=== PATIENT | female | born 1930 | race Caucasian/White ===

== ENCOUNTER 2019-03-01 12:20 | Inpatient (IN) ==
[2019-03-01 15:04] LABS: Basophils % 0.3 % (0.0-0.8); Eosinophils % 0.1 % (0.00-10.9); Hematocrit 37.5 VOL% (35.7-47.0); Hemoglobin 12.1 GM/DL (12.0-16.0); Immature Granulocytes % 2.5 %; Immature Granulocytes Absolute 0.29 #; Lymphocytes # 0.9 10*3/uL (1.4-4.0); Lymphocytes % 7.5 % (21.3-54.2); Mean Corpuscular HGB Conc 32.3 GM/DL (32-36); Mean Corpuscular Volume 98.7 FL (87-102); Mean Platelet Volume 10.2 FL (9.6-12.0); Monocytes % 4.3 % (1.7-12.7); NRBC # 0.02 10*3/uL; Neutrophils % 85.3 % (38.7-73.9); Platelet Count 158 T/CUMM (130-400); Red Cell Distribution Width 16.4 % (9.3-17.3); White Blood Count 11.6 T/CUMM (4-12)
[2019-03-01 15:05] LABS: INR 1.5; PT Patient Result 15.7 SECS (9.6-12.2)
[2019-03-01 15:27] LABS: Bilirubin,Total 0.6 MG/DL (0.2-1.0); Calcium 9.5 MG/DL (8.5-10.1); Osmolality,Calculated 290.4 MOS/KG (273-304); Total Protein 6.6 G/DL (6.4-8.3)
[2019-03-01] MEDS ORDERED: ONDANSETRON 4 MG/2 ML VIAL IV PRN (16:22)
[2019-03-01] MEDS ORDERED: ACETAMINOPHEN 325 MG TABLET PO PRN (16:22)
[2019-03-01] MEDS: SODIUM CHLORIDE 0.9% 1,000 ML IV SCH (18:24)
[2019-03-01] MEDS: OXYCODONE 10 MG PO PRN (19:45)
[2019-03-01] MEDS ORDERED: OXYCODONE 10 MG PO PRN ×2 (20:20→20:41)
[2019-03-01] MEDS: APIXABAN 5 MG TABLET PO SCH (20:39)
[2019-03-01] MEDS ORDERED: APIXABAN 5 MG TABLET PO SCH (21:00)
[2019-03-01] MEDS ORDERED: WARFARIN 2 MG TABLET PO ONE (21:00)
[2019-03-02] MEDS: SODIUM CHLORIDE 0.9% 1,000 ML IV SCH ×3 (03:07→23:42)
[2019-03-02 05:43] LABS: Basophils % 0.3 % (0.0-0.8); Eosinophils # 0.1 10*3/uL (0.0-0.87); Eosinophils % 0.8 % (0.00-10.9); Hematocrit 33.7 VOL% (35.7-47.0); Hemoglobin 10.7 GM/DL (12.0-16.0); Immature Granulocytes % 3.3 %; Immature Granulocytes Absolute 0.25 #; Lymphocytes # 1.4 10*3/uL (1.4-4.0); Mean Corpuscular HGB Conc 31.8 GM/DL (32-36); Mean Corpuscular Volume 99.4 FL (87-102); Monocytes % 5.4 % (1.7-12.7); Neutrophils % 71.2 % (38.7-73.9); Platelet Count 130 T/CUMM (130-400); Red Blood Count 3.39 MC/CUMM (3.8-5.5); Red Cell Distribution Width 16.6 % (9.3-17.3); White Blood Count 7.5 T/CUMM (4-12)
[2019-03-02 05:49] LABS: INR 1.6; PT Patient Result 16.9 SECS (9.6-12.2)
[2019-03-02 06:18] LABS: Albumin 2.5 G/DL (3.4-5.0); Bilirubin,Total 1.1 MG/DL (0.2-1.0); Calcium 8.5 MG/DL (8.5-10.1); Osmolality,Calculated 297.7 MOS/KG (273-304); Risk Ratio 4.88; Thyroid Stimulating Hormone 2.96 uIU/ml (0.358-3.74); Total Protein 5.6 G/DL (6.4-8.3); VLDL CHOLESTEROL 52.6 MG/DL
[2019-03-02] MEDS ORDERED: ALENDRONATE PO SCH (11:45)
[2019-03-02] MEDS: APIXABAN 5 MG TABLET PO SCH (12:55)
[2019-03-02] MEDS: ATENOLOL 50 MG TABLET PO SCH (13:15)
[2019-03-02] MEDS: PANTOPRAZOLE 40 MG TABLET PO SCH (13:16)
[2019-03-02] MEDS: OXYCODONE 10 MG PO PRN (15:32)
[2019-03-02] MEDS: HEPARIN DRIP 25,000 UNITS/500 ML PREMIX IV SCH (18:03)
[2019-03-02] MEDS: MORPHINE 4 MG/1 ML VIAL IV PRN (19:59)
[2019-03-03 00:50] LABS: INR 1.7; PT Patient Result 18.6 SECS (9.6-12.2)
[2019-03-03 00:59] LABS: Albumin 2.2 G/DL (3.4-5.0); Bilirubin,Total 0.6 MG/DL (0.2-1.0); Calcium 7.9 MG/DL (8.5-10.1); Osmolality,Calculated 291.6 MOS/KG (273-304); Total Protein 5.1 G/DL (6.4-8.3)
[2019-03-03] MEDS: MORPHINE 4 MG/1 ML VIAL IV PRN ×2 (01:04→15:13)
[2019-03-03 01:06] LABS: Basophils % 0.4 % (0.0-0.8); Eosinophils # 0.1 10*3/uL (0.0-0.87); Hematocrit 32.5 VOL% (35.7-47.0); Hemoglobin 10.1 GM/DL (12.0-16.0); Immature Granulocytes % 3.5 %; Immature Granulocytes Absolute 0.25 #; Lymphocytes # 0.8 10*3/uL (1.4-4.0); Mean Corpuscular HGB Conc 31.1 GM/DL (32-36); Mean Corpuscular Volume 100.9 FL (87-102); Mean Platelet Volume 10.1 FL (9.6-12.0); Monocytes % 6.5 % (1.7-12.7); Neutrophils % 77.6 % (38.7-73.9); Platelet Count 128 T/CUMM (130-400); Red Blood Count 3.22 MC/CUMM (3.8-5.5); Red Cell Distribution Width 16.4 % (9.3-17.3); White Blood Count 7.2 T/CUMM (4-12)
[2019-03-03] MEDS: LEVOTHYROXINE 25 MCG TABLET PO SCH (05:43)
[2019-03-03] MEDS: PANTOPRAZOLE 40 MG TABLET PO SCH (09:17)
[2019-03-03] MEDS: ASPIRIN EC 81 MG TABLET PO SCH (09:17)
[2019-03-03] MEDS: ATENOLOL 50 MG TABLET PO SCH (09:17)
[2019-03-03] MEDS: FUROSEMIDE 40 MG TABLET PO SCH (09:17)
[2019-03-03] MEDS: POTASSIUM GLUCONATE 500 MG TABLET PO SCH (09:17)
[2019-03-03] MEDS: SODIUM CHLORIDE 0.9% 1,000 ML IV SCH ×2 (09:21→20:54)
[2019-03-03] MEDS ORDERED: OXYCODONE 10 MG PO PRN (10:26)
[2019-03-03] MEDS: FAMCICLOVIR 250 MG TABLET PO SCH (11:41)
[2019-03-03] MEDS: OXYCODONE 10 MG PO PRN (12:59)
[2019-03-03] MEDS: HEPARIN DRIP 25,000 UNITS/500 ML PREMIX IV SCH ×2 (14:19→23:57)
[2019-03-03] MEDS: predniSONE 10 MG TABLET PO SCH ×2 (15:07→20:54)
[2019-03-03] MEDS ORDERED: TUBERCULIN SKIN TEST 0.1 ML SYRINGE INTRADERM ONE (16:49)
[2019-03-04 06:19] LABS: Basophils % 0.1 % (0.0-0.8); Hematocrit 29.8 VOL% (35.7-47.0); Hemoglobin 9.4 GM/DL (12.0-16.0); Immature Granulocytes % 1.6 %; Immature Granulocytes Absolute 0.11 #; Lymphocytes # 0.6 10*3/uL (1.4-4.0); Lymphocytes % 8.2 % (21.3-54.2); Mean Corpuscular HGB Conc 31.5 GM/DL (32-36); Mean Corpuscular Volume 98.3 FL (87-102); Mean Platelet Volume 9.9 FL (9.6-12.0); Monocytes % 6.1 % (1.7-12.7); Platelet Count 132 T/CUMM (130-400); Red Blood Count 3.03 MC/CUMM (3.8-5.5); Red Cell Distribution Width 15.8 % (9.3-17.3); White Blood Count 6.7 T/CUMM (4-12)
[2019-03-04 06:31] LABS: INR 1.5; PT Patient Result 16.6 SECS (9.6-12.2)
[2019-03-04 06:44] LABS: Bilirubin,Total 0.4 MG/DL (0.2-1.0); Calcium 7.9 MG/DL (8.5-10.1); Osmolality,Calculated 287.8 MOS/KG (273-304)
[2019-03-04] MEDS: LEVOTHYROXINE 25 MCG TABLET PO SCH (07:48)
[2019-03-04] MEDS: SODIUM CHLORIDE 0.9% 1,000 ML IV SCH ×2 (07:49→20:18)
[2019-03-04] MEDS: FUROSEMIDE 40 MG TABLET PO SCH (09:13)
[2019-03-04] MEDS: FAMCICLOVIR 250 MG TABLET PO SCH (09:13)
[2019-03-04] MEDS: ASPIRIN EC 81 MG TABLET PO SCH (09:13)
[2019-03-04] MEDS: ATENOLOL 50 MG TABLET PO SCH (09:13)
[2019-03-04] MEDS: POTASSIUM GLUCONATE 500 MG TABLET PO SCH (09:13)
[2019-03-04] MEDS: PANTOPRAZOLE 40 MG TABLET PO SCH (09:13)
[2019-03-04] MEDS: predniSONE 10 MG TABLET PO SCH ×3 (09:14→20:52)
[2019-03-04] MEDS: MORPHINE 4 MG/1 ML VIAL IV PRN ×2 (10:40→19:46)
[2019-03-04] MEDS: HEPARIN DRIP 25,000 UNITS/500 ML PREMIX IV SCH (15:56)
[2019-03-04] MEDS: OXYCODONE 10 MG PO PRN (21:19)
[2019-03-05] MEDS: MORPHINE 4 MG/1 ML VIAL IV PRN (01:01)
[2019-03-05 04:41] LABS: INR 1.6; PT Patient Result 16.9 SECS (9.6-12.2)
[2019-03-05] MEDS: SODIUM CHLORIDE 0.9% 1,000 ML IV SCH ×3 (05:08→23:32)
[2019-03-05] MEDS: LEVOTHYROXINE 25 MCG TABLET PO SCH (05:56)
[2019-03-05] MEDS: predniSONE 10 MG TABLET PO SCH ×3 (08:54→21:06)
[2019-03-05] MEDS: ATENOLOL 50 MG TABLET PO SCH (08:54)
[2019-03-05] MEDS: FAMCICLOVIR 250 MG TABLET PO SCH (08:55)
[2019-03-05] MEDS: PANTOPRAZOLE 40 MG TABLET PO SCH (08:55)
[2019-03-05] MEDS: POTASSIUM GLUCONATE 500 MG TABLET PO SCH (11:02)
[2019-03-05] MEDS: OXYCODONE 10 MG PO PRN ×3 (11:03→22:11)
[2019-03-05] MEDS: FUROSEMIDE 40 MG TABLET PO SCH (11:03)
[2019-03-05] MEDS: ASPIRIN EC 81 MG TABLET PO SCH (11:03)
[2019-03-05] MEDS: HEPARIN DRIP 25,000 UNITS/500 ML PREMIX IV SCH (17:57)
[2019-03-06] MEDS ORDERED: cloNIDine 0.1 MG TABLET PO ONE (00:25)
[2019-03-06] MEDS: MORPHINE 4 MG/1 ML VIAL IV PRN (02:09)
[2019-03-06] MEDS: SODIUM CHLORIDE 0.9% 1,000 ML IV SCH ×3 (02:10→23:29)
[2019-03-06 05:09] LABS: INR 1.3; PT Patient Result 14.5 SECS (9.6-12.2)
[2019-03-06] MEDS: LEVOTHYROXINE 25 MCG TABLET PO SCH (06:38)
[2019-03-06] MEDS ORDERED: ROPIVACAINE 0.5% 30 ML VIAL ONE (10:57)
[2019-03-06] MEDS ORDERED: TISSUE ADHESIVE 1 EACH APPLICATOR TOP ONE (12:33)
[2019-03-06] MEDS ORDERED: fentaNYL 100 MCG/2 ML VIAL ONE (12:52)
[2019-03-06] MEDS ORDERED: LIDOCAINE 2% 5 ML VIAL ONE (12:52)
[2019-03-06] MEDS ORDERED: PROPOFOL 200 MG/20 ML VIAL IV ONE (12:52)
[2019-03-06] MEDS ORDERED: hydrALAZINE 20 MG/1 ML VIAL ONE (13:05)
[2019-03-06] MEDS ORDERED: hydrALAZINE 20 MG/1 ML VIAL IV ONE (13:07)
[2019-03-06] MEDS: ASPIRIN EC 81 MG TABLET PO SCH (14:39)
[2019-03-06] MEDS: PANTOPRAZOLE 40 MG TABLET PO SCH (14:39)
[2019-03-06] MEDS: OMEGA 3 ACID ETHYL ESTERS 1 GM CAPSULE PO SCH (14:39)
[2019-03-06] MEDS: FAMCICLOVIR 250 MG TABLET PO SCH (14:39)
[2019-03-06] MEDS: POTASSIUM GLUCONATE 500 MG TABLET PO SCH (14:39)
[2019-03-06] MEDS: CHOLECALCIFEROL 1,000 UNIT TABLET PO SCH (14:40)
[2019-03-06] MEDS: FUROSEMIDE 40 MG TABLET PO SCH (14:40)
[2019-03-06] MEDS: predniSONE 10 MG TABLET PO SCH ×3 (14:40→20:54)
[2019-03-06] MEDS: ATENOLOL 50 MG TABLET PO SCH (14:40)
[2019-03-07 05:44] LABS: Basophils % 0.2 % (0.0-0.8); Eosinophils % 0.2 % (0.00-10.9); Hematocrit 29.8 VOL% (35.7-47.0); Hemoglobin 9.6 GM/DL (12.0-16.0); Immature Granulocytes % 4.4 %; Immature Granulocytes Absolute 0.25 #; Lymphocytes # 0.5 10*3/uL (1.4-4.0); Lymphocytes % 8.9 % (21.3-54.2); Mean Corpuscular HGB Conc 32.2 GM/DL (32-36); Mean Corpuscular Volume 96.1 FL (87-102); Mean Platelet Volume 10.1 FL (9.6-12.0); Monocytes % 6.7 % (1.7-12.7); NRBC # 0.07 10*3/uL; Neutrophils % 79.6 % (38.7-73.9); Platelet Count 180 T/CUMM (130-400); Red Cell Distribution Width 15.3 % (9.3-17.3); White Blood Count 5.7 T/CUMM (4-12)
[2019-03-07 05:50] LABS: INR 1.2; PT Patient Result 13.1 SECS (9.6-12.2)
[2019-03-07 06:14] LABS: Calcium 8.3 MG/DL (8.5-10.1); Osmolality,Calculated 290.4 MOS/KG (273-304)
[2019-03-07] MEDS ORDERED: POTASSIUM CHLORIDE RIDER 10 MEQ in PREMIX 1 EACH IV PRN (06:28)
[2019-03-07] MEDS: predniSONE 10 MG TABLET PO SCH ×4 (06:45→20:47)
[2019-03-07] MEDS: LEVOTHYROXINE 25 MCG TABLET PO SCH (06:45)
[2019-03-07] MEDS: OMEGA 3 ACID ETHYL ESTERS 1 GM CAPSULE PO SCH ×2 (09:03→09:04)
[2019-03-07] MEDS: FUROSEMIDE 40 MG TABLET PO SCH (09:03)
[2019-03-07] MEDS: FAMCICLOVIR 250 MG TABLET PO SCH (10:14)
[2019-03-07] MEDS: POTASSIUM CHLORIDE 20 MEQ TABLET PO PRN ×3 (10:14→18:03)
[2019-03-07] MEDS: APIXABAN 5 MG TABLET PO SCH ×2 (10:15→20:46)
[2019-03-07] MEDS: ASPIRIN EC 81 MG TABLET PO SCH (10:15)
[2019-03-07] MEDS: ATENOLOL 50 MG TABLET PO SCH (10:15)
[2019-03-07] MEDS: BACITRACIN OINT 0.9 GM PACK TOP SCH (10:15)
[2019-03-07] MEDS: PANTOPRAZOLE 40 MG TABLET PO SCH (10:15)
[2019-03-07] MEDS: CHOLECALCIFEROL 1,000 UNIT TABLET PO SCH (10:15)
[2019-03-07] MEDS: POTASSIUM GLUCONATE 500 MG TABLET PO SCH (10:15)
[2019-03-07] MEDS: SODIUM CHLORIDE 0.9% 1,000 ML IV SCH ×2 (10:16→20:47)
[2019-03-07] MEDS: OXYCODONE 10 MG PO PRN (20:46)
[2019-03-07] MEDS ORDERED: ALUM/MAG/SIMETH/LIDO VISC 1:1 30 ML BOTTLE PO ONE (22:44)
[2019-03-08] MEDS: SODIUM CHLORIDE 0.9% 1,000 ML IV SCH (04:50)
[2019-03-08] MEDS: LEVOTHYROXINE 25 MCG TABLET PO SCH (06:05)
[2019-03-08] MEDS: FAMCICLOVIR 250 MG TABLET PO SCH (09:03)
[2019-03-08] MEDS: ASPIRIN EC 81 MG TABLET PO SCH (09:03)
[2019-03-08] MEDS: APIXABAN 5 MG TABLET PO SCH (09:03)
[2019-03-08] MEDS: POTASSIUM GLUCONATE 500 MG TABLET PO SCH (09:03)
[2019-03-08] MEDS: FUROSEMIDE 40 MG TABLET PO SCH (09:03)
[2019-03-08] MEDS: PANTOPRAZOLE 40 MG TABLET PO SCH (09:03)
[2019-03-08] MEDS: ATENOLOL 50 MG TABLET PO SCH (09:03)
[2019-03-08] MEDS: predniSONE 10 MG TABLET PO SCH (09:03)
[2019-03-08] MEDS: CHOLECALCIFEROL 1,000 UNIT TABLET PO SCH (09:03)
[2019-03-08] MEDS: BACITRACIN OINT 0.9 GM PACK TOP SCH (09:07)
[2019-03-08] MEDS: OMEGA 3 ACID ETHYL ESTERS 1 GM CAPSULE PO SCH (09:07)
[2019-03-08] MEDS: POTASSIUM CHLORIDE 20 MEQ TABLET PO PRN ×2 (10:04→12:53)
[2019-03-08] MEDS ORDERED: POLYETHYLENE GLYCOL POWDER 17 GM PACK PO PRN (10:15)
[2019-03-08 11:44] VITALS: BP 177/83
[2019-03-08] MEDS: OXYCODONE 10 MG PO PRN (12:51)
== END 2019-03-08 15:30 | DRG 982 ==
LOC: N.ED 12:20 → SUATTDRO 16:22 → N.EDINP 16:22 → N.2E 16:59
PROVIDERS: ADMIT Emergency Medicine; ATTEND Internal Medicine Geriatric Medicine